=== PATIENT | female | born 1960 | race Caucasian/White ===

== ENCOUNTER → 2016-07-25 | Outpatient (CLI) | payer MEDICARE ==
[~2016-07-25] MED LIST: ALDACTONE PO; ALDACTONE25 MG PO; ASPIRIN EC81 M1 PO; BAYER CHEWABLE81 MG PO; BUSPIRONE HCL10 MG PO; CLOBEX59 M1 TOP; COLACE PO; COREG PO; COUMADIN3 MG PO; DEPAKOTE ER PO; DESYREL100 MG DOB; DOC-Q-LACE100 MG PO; DUONEB NEB; FERREX 150 PLU1 EACH PO; FLEXERIL PO; FLONASE 0.05% N16 G1; GABAPENTIN400 M2 PO; GLUCOPHAGE500 M1 PO; GLUCOPHAGE500 MG; HCTZ PO; IRON325 ( 652 PO; K-LOR HOSPITAL20 ME1 PO; LASIX PO; LASIX20 MG PO; LIPITOR40 MG PO; LISINOPRIL PO; LISINOPRIL-HCTZ1 T14 PO; LISINOPRIL2.5 MG PO; LISINOPRIL20 MG PO; LOPID600 MG PO; LOVENOX80 MG/0.8 INJ; NEURONTIN600 MG PO; NIFEREX-150 CAP1 CAP PO; NORCO 5/325 TAB1 TAB PO; NORCO1 TAB 10/3 PO; PERCOCET PO; PHENERGAN25 MG PO; PRILOSEC PO; REMERON30 MG PO; RENVELA800 MG PO; REQUIP2 MG PO; SEROQUEL PO; SEVELAMER CARB800 MG PO; TIZANIDINE HCL4 M1 PO; TRILEPTAL PO; VITAMIN C500 M1 PO; VITAMIN C500 MG/15; VITAMIN D-32000 UNI2 PO; ZYPREXA PO; ZYPREXA15 MG PO; ZYRTEC10 M1 PO; [UNRECOGNIZED DRUG - OTHER]; [UNRECOGNIZED DRUG - OTHER]
--- NOTE | ~2016-07-25 | XA60 ---
[facility] A Service of [facility] RADIOLOGY TEXT RESULTS PATIENT: SUSAN PERKINS [id number] : 60 UNIT #: [id number] AGE: [address]: Soren Lorenz MD SEX: F ORDER DR: [id number] [facility] [place] [facility]. [place], [place] [address] [id number] O MR#: [id number] Acc #: [id number] NAME: SUSAN PERKINS : 1960 SEX: F STUDY DATE/TIME: 07/25/2016 8:43 UNIT: [facility] ROOM: STUDY DESCRIPTION: XA BX Perc Liver Attending Physician: Soren Lorenz M.D. Referring Physician: Soren Lorenz M.D. Ordering Physician: Soren Lorenz M.D. Primary Care Physician: Nate Dill M.D. MEDICAL IMAGING REPORT This report is preliminary unless electronic signature is present EXAM Ultrasound guided liver biopsy HISTORY Elevated liver enzymes. TECHNIQUE The procedure was explained to the patient including risks, benefits and complications. FINDINGS Informed consent was obtained and a formal "time-out" procedure was utilized. Conscious sedation was employed with intravenous Versed and Fentanyl that was administered by nursing who was present and monitoring the patient during the examination. Using sterile technique and following local anesthesia with 1% Xylocaine, an 18-gauge biopsy gun was used to obtain one core of tissue from the liver. The tissue was placed in formalin and sent for appropriate stains and analysis. The patient tolerated the procedure well. She will be kept on bedrest for four hours following the procedure with close monitoring of vital signs. IMPRESSION Technically successful ultrasound guided liver biopsy. Dictated by... Main Chamorro M.D. THIS IS AN ELECTRONICALLY VERIFIED REPORT Main Chamorro M.D. at 07/25/2016 4:31 PM ZOHREHF/montse [facility] A Service of [facility] RADIOLOGY TEXT RESULTS PATIENT: SUSAN PERKINS LOCATION: [facility] #: [id number] : 60 UNIT #: [id number] AGE: [address]: Soren Lorenz MD SEX: F ORDER DR: TD: 07/25/2016 15:41 JOB #: [id number] MEDICAL IMAGING REPORT COPY
[2016-07-25 06:38] LABS: HEMATOCRIT 38.6 % (35.0-45.0); HEMOGLOBIN 12.4 gm/dL (12.0-16.0); MEAN CORPUSCULAR HEMOGLOBIN 27.5 PG (28-34); MEAN PLATELET VOLUME 7.8 FL (6.5-11.5); RED BLOOD COUNT 4.49 X10e (3.90-5.30); RED CELL DISTRIBUTION WIDTH 14.7 % (11.0-15.5); WHITE BLOOD COUNT 11.9 X10e3 (4.0-10.5)
[2016-07-25 06:51] LABS: PROTHROMBIN TIME (PATIENT) 10.1 SECONDS (9.6-11.5)
== END | disposition home or self-care (01) ==
LOC: CIVR 06:08
PROVIDERS: Internal Medicine
DX: K83.0 Cholangitis (principal); K74.0 Hepatic fibrosis; K75.9 Inflammatory liver disease, unspecified; R79.89 Other specified abnormal findings of blood chemistry; J44.9 Chronic obstructive pulmonary disease, unspecified; Z86.711 Personal history of pulmonary embolism; Z87.01 Personal history of pneumonia (recurrent)
CPT/HCPCS: 36415; 76942; 85027; 85610; 85730; 88307; 88313; J2250; J3010

== ENCOUNTER → 2016-11-03 | Outpatient (CLI) | payer MEDICARE ==
[2016-11-03 11:49] LABS: HEMATOCRIT 41.1 % (35.0-45.0); HEMOGLOBIN 12.9 gm/dL (12.0-16.0); MEAN CELL VOLUME 85.4 FL (83-96); MEAN CORPUSCULAR HEMOGLOBIN 26.9 PG (28-34); MEAN CORPUSCULAR HGB CONC 31.5 g/dL (30-36); RED BLOOD COUNT 4.82 X10e (3.90-5.30); RED CELL DISTRIBUTION WIDTH 14.6 % (11.0-15.5); WHITE BLOOD COUNT 14.3 X10e3 (4.0-10.5)
[2016-11-03 12:57] LABS: ALBUMIN SERUM 3.7 g/dL (3.5-5.0); BILIRUBIN,TOTAL 0.2 mg/dL (0.2-2.0); CREATININE SERUM 1.1 mg/dL (0.6-1.4); GLOM FILT RATE Estimated 56.1 mL/min (>60); POTASSIUM 4.1 mmol/L (3.5-5.1)
== END | disposition home or self-care (01) ==
LOC: CLAB 11:13
PROVIDERS: Internal Medicine
DX: K74.3 Primary biliary cirrhosis (principal)
CPT/HCPCS: 36415; 80053; 85027

== ENCOUNTER → 2017-02-08 | Outpatient (CLI) | payer MEDICARE ==
--- NOTE | ~2017-02-08 | MY29 ---
[facility] A Service of [facility] RADIOLOGY TEXT RESULTS PATIENT: SUSAN PERKINS LOCATION: [facility] : 60 UNIT #: [id number] AGE: [address]: CLAUDETTE OSBORNE SEX: F ORDER DR: [id number] [facility]. [place], [place] [address] [id number] O MR#: [id number] Acc #: [id number] NAME: SUSAN PERKINS : 1960 SEX: F STUDY DATE/TIME: 02/08/2017 12:03 UNIT: [facility] ROOM: STUDY DESCRIPTION: MY MENDEZ SCREENING W/ CAD BILAT Attending Physician: Claudette Osborne M.D. Ordering Physician: Claudette Osborne M.D. Primary Care Physician: Nate Dill M.D. MEDICAL IMAGING REPORT This report is preliminary unless electronic signature is present EXAM Bilateral digital screening mammogram with CAD 02/08/2017 INDICATIONS 56-year-old female for routine screening. No reported problems and no personal or family history of breast cancer. No surgeries. TECHNIQUE CC and MLO views were obtained and reviewed with a FDA-approved CAD device. COMPARISON STUDIES We have no comparisons for this patient in our system. She reports a prior mammogram at the [facility] in September 2013. FINDINGS Breast parenchyma is composed of scattered fibroglandular densities. The pattern is symmetric. There is no dominant nodule or mass in either breast. No suspicious clustered microcalcifications. Benign appearing calcifications are present. There is prominence of lymph nodes in the axilla bilaterally. These are likely reactive but should be correlated clinically. If the patient's prior mammogram from the [facility] can be obtained for comparison purposes, an addendum to this dictation will be generated at that point. IMPRESSION 1. Benign baseline screening mammogram. If the patient's prior imaging can be obtained, an addendum will be generated at that point. Otherwise, a mammogram in 1 year is recommended. BIRADS: 2 Benign Finding. [facility] A Service of [facility] RADIOLOGY TEXT RESULTS PATIENT: SUSAN PERKINS LOCATION: [facility] : 60 UNIT #: [id number] AGE: [address]: CLAUDETTE OSBORNE SEX: F ORDER DR: Patients over the age of 40 are entered into a reminder system with target due date for the next mammogram. A result letter will also be sent to the patient. Dictated by... Brendon Davis M.D. THIS IS AN ELECTRONICALLY VERIFIED REPORT Brendon Davis M.D. at 02/09/2017 8:28 AM Alexander TD: 02/09/2017 01:53 JOB #: [id number] MEDICAL IMAGING REPORT Page 1 of 1 COPY
== END | disposition home or self-care (01) ==
LOC: CWCC 11:43
DX: Z12.31 Encounter for screening mammogram for malignant neoplasm of breast (principal)
CPT/HCPCS: G0202